=== PATIENT | male | born 1985 | race American Indian/Alaskan Native ===

== ENCOUNTER 2021-10-22 20:53 | Emergency (ER) | payer SELFPAY ==
[2021-10-23] MEDS ORDERED: traMADol 50 MG TAB PO ONE (03:38)
--- NOTE | 2021-10-23 03:54 | Emergency Department Report ---
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 Chest pain is reproducible by movement, and deep inspiration. pt denies sob or NV. There is no history of asthma or bronchitis, occassional smoker. 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 Patient denies fall injury or trauma. Pain is described as 6/10 sharp achy spasms pain is relieved by nothing tried. Pain is exacerbated by movement and palpation. There is been no shortness of breath no dizziness no lightheadedness no nausea vomiting no paraparesis. - Related Data Previous Rx's Medication Instructions Recorded Last Taken Type Albuterol Mdi (or & Nicu Only) 2 puff IH QID PRN #8.5 gram 10/23/21 Unknown Rx [ProAir HFA Inhaler] Azithromycin 500 mg PO DAILY #5 10/23/21 Unknown Rx Ibuprofen [Motrin 800 MG tab] 800 mg PO Q8HR PRN #30 tablet 10/23/21 Unknown Rx Allergies Allergy/AdvReac Type Severity Reaction Status Date / Time No Known Allergies Allergy Verified 10/23/21 04:11 ED Review of Systems ROS: Stated complaint: CHEST PAIN Other details as noted in HPI Constitutional: denies: chills, fever Eyes: denies: eye pain, eye discharge, vision change ENT: denies: ear pain, throat pain Respiratory: denies: cough, shortness of breath, wheezing Cardiovascular: denies: chest pain, palpitations Endocrine: no symptoms reported Gastrointestinal: denies: abdominal pain, nausea, vomiting, diarrhea Genitourinary: denies: urgency, dysuria Musculoskeletal: denies: back pain, joint swelling, arthralgia Skin: pruritus. denies: rash, lesions Neurological: denies: headache, weakness, paresthesias, vertigo Psychiatric: denies: anxiety, depression Hematological/Lymphatic: denies: easy bleeding, easy bruising ED Past Medical Hx - Past Medical History Previous Medical History?: No - Surgical History Past Surgical History?: No - Social History Smoking Status: Current Every Day Smoker Substance Use Type: Alcohol - Medications Home Medications: Home Medications Medication Instructions Recorded Confirmed Last Taken Type Albuterol Mdi (or & Nicu Only) 2 puff IH QID PRN #8.5 gram 10/23/21 Unknown Rx [ProAir HFA Inhaler] Azithromycin 500 mg PO DAILY #5 10/23/21 Unknown Rx Ibuprofen [Motrin 800 MG tab] 800 mg PO Q8HR PRN #30 tablet 10/23/21 Unknown Rx ED Physical Exam - General Limitations: No Limitations General appearance: alert, in no apparent distress - Head Head exam: Present: normocephalic, normal inspection - Eye Eye exam: Present: normal appearance, EOMI Pupils: Present: normal accommodation - ENT ENT exam: Present: mucous membranes moist - Neck Neck exam: Present: normal inspection, full ROM. Absent: tenderness - Respiratory Respiratory exam: Present: normal lung sounds bilaterally. Absent: respiratory distress, wheezes, stridor, chest wall tenderness - Cardiovascular Cardiovascular Exam: Present: regular rate, normal rhythm, normal heart sounds. Absent: systolic murmur, diastolic murmur, rubs, gallop - GI/Abdominal GI/Abdominal exam: Present: soft, normal bowel sounds. Absent: distended, tenderness - Rectal Rectal exam: Present: deferred - Extremities Exam Extremities exam: Present: normal inspection, full ROM, normal capillary refill - Back Exam Back exam: Present: normal inspection, full ROM. Absent: CVA tenderness (R), CVA tenderness (L) - Neurological Exam Neurological exam: Present: alert, oriented X3, CN II-XII intact, normal gait - Expanded Neurological Exam Expanded Patient oriented to: Present: person, place, time Speech: Present: fluid speech Best Eye Response ([place]): (4) open spontaneously Best Motor Response ([place]): (6) obeys commands Best Verbal Response (Janay): (5) oriented Janay Total: 15 - Psychiatric Psychiatric exam: Present: normal affect, normal mood - Skin Skin exam: Present: warm, dry, intact, normal color. Absent: rash ED Course Vital Signs 10/22/21 21:03 Temperature 98.2 F Pulse Rate 74 Respiratory 16 Rate Blood Pressure 136/96 O2 Sat by Pulse 100 Oximetry ED Medical Decision Making - Radiology Data Radiology results: report reviewed, image reviewed CHEST 2 VIEWS INDICATION / CLINICAL INFORMATION: chest wall pain left. COMPARISON: None available. FINDINGS: SUPPORT DEVICES: None. HEART / MEDIASTINUM: No significant abnormality. LUNGS / PLEURA: Hazy airspace opacities seen throughout both lungs. No pneumothorax. ADDITIONAL FINDINGS: No significant additional findings. IMPRESSION: 1. Hazy opacities in both lungs which can be seen with atypical infectious process versus pulmonary edema. Signer Name: Juan Do DO Signed: 10/23/2021 4:05 AM Workstation Name: [id number] Transcribed By: ERROL Dictated By: JUAN DO DO Electronically Authenticated By: JUAN DO DO Signed Date/Time: 10/23/21404 DD/ 3 TD/TT: Print Cancel - Medical Decision Making CXR : Hazy opacities in both lungs which can be seen with atypical infectious process versus pulmonary edema. Pain is reproducible to palpation and deep inspiration. Cough is productive clear. There is been no fever or chills. There is no wheezing or stridor. Plan treat for atypical DC to home with prescriptions. Follow-up primary care doctor in 1 to 2 days. Patient verbalized agreement and understanding with discharge plan. Patient DC'd home in stable condition at this time. Critical care attestation.: If time is entered above; I have spent that time in minutes in the direct care of this critically ill patient, excluding procedure time. ED Disposition Clinical Impression: Viral illness CAP (community acquired pneumonia) Qualifiers: Laterality: unspecified laterality Qualified Code(s): J18.9 - Pneumonia, unspecified organism Disposition: 01 HOME / SELF CARE / HOMELESS Is pt being admited?: No Does the pt Need Aspirin: No Condition: Stable Instructions: Bacterial Pneumonia (ED), Viral Respiratory Infection, Community- Acquired Pneumonia, Adult Additional Instructions: Take medications as prescribed, follow-up with your doctor in 2 to 3 days. Take COVID screening. Return to ED emergency should symptoms worsen. Prescriptions: Azithromycin 500 mg PO DAILY #5 Ibuprofen [Motrin 800 MG tab] 800 mg PO Q8HR PRN #30 tablet PRN Reason: Pain , Severe (7-10) Albuterol Mdi (or & Nicu Only) [ProAir HFA Inhaler] 2 puff IH QID PRN #8.5 gram PRN Reason: Shortness Of Breath Referrals: FABIO PARDO MD [Staff Physician] - 3-5 Days Forms: Work/School Release Form(ED) Time of Disposition: 04:59
--- NOTE | 2021-10-23 04:09 | XRay Report ---
CHEST 2 VIEWS INDICATION / CLINICAL INFORMATION: chest wall pain left. COMPARISON: None available. FINDINGS: SUPPORT DEVICES: None. HEART / MEDIASTINUM: No significant abnormality. LUNGS / PLEURA: Hazy airspace opacities seen throughout both lungs. No pneumothorax. ADDITIONAL FINDINGS: No significant additional findings. IMPRESSION: 1. Hazy opacities in both lungs which can be seen with atypical infectious process versus pulmonary e ron. Signer Name: Juan Do DO Signed: 10/23/2021 4:05 AM Workstation Name: [id number]
[2021-10-23 05:12] VITALS: BP 132/91
== END 2021-10-23 05:12 | disposition home or self-care (01) ==
LOC: ED 20:53
DX: J18.8 Other pneumonia, unspecified organism (principal); B34.9 Viral infection, unspecified; F17.290 Nicotine dependence, other tobacco product, uncomplicated
CPT/HCPCS: 71046; 99283